=== PATIENT | female | born 1945 | race Caucasian/White ===

== ENCOUNTER → 2016-09-12 | Outpatient (CLI) | payer MEDICARE, BC ==
[2016-07-21 04:39] VITALS: BP 169/74
[~2016-09-12] MED LIST: TRAM50TA PO
--- NOTE | 2016-09-12 14:10 | KCIC ---
PROCEDURE MR of the right knee HISTORY Right knee pain anteriorly. Swelling for 3 months. Osteoarthritis. TECHNIQUE Standard multiplanar sequences are obtained. COMPARISON None FINDINGS There is mild motion degradation. Mild signal within the posterior horn of the medial meniscus compatible with a tear. Abnormal signal within the anterior horn of the lateral meniscus compatible with a tear. Anterior cruciate ligament is intact. Posterior cruciate ligament is intact. Medial collateral ligament is intact. Iliotibial band unremarkable. Fibular collateral ligament, biceps femoris tendon and popliteus tendon are intact. Extensor mechanism is intact. Moderate joint effusion. No evidence of an osteochondral loose body. Severe chondromalacia at the medial joint compartment and at the lateral joint compartment. Severe chondromalacia at the patellofemoral joint compartment. No bone lesion or acute fracture. No acute soft tissue injury. Only trace Ver[place] cyst. IMPRESSION 1. Medial meniscal tear. 2. Lateral meniscal tear. 3. Severe primary osteoarthritis. Electronically signed by: Saulo Goodwin MD (Sep 12, 2016 14:08:21)
--- NOTE | 2016-09-13 01:07 | KCIC ---
EXAM: Bone densitometry. HISTORY: Postmenopausal female presents for osteoporosis screening. FINDINGS: BMD: (g/cm2) - AP Spine Total (L1-L4): 0.935 - Total left Hip: 0.878 T-Score: - AP Spine Total (L1-L4): -0.8 - Total left Hip: -0.5 Z-Score: - AP Spine Total (L1-L4): 1.4 - Total left Hip: 1.1 There has been a 0.4 percent decrease in bone mineral density of the lumbar spine and 5.0 percent decrease in bone mineral density of the left hip compared to a study dated 08/27/2014. World Health Organization criteria for BMD interpretation classify patients as Normal (T-score at or above -1.0), Osteopenic (T-score between -1.0 and -2.5), or Osteoporotic (T-score at or below -2.5). IMPRESSION: Normal bone mineral density. Electronically signed by: Adriana Alvarez (Sep 13, 2016 01:04:17)
== END | disposition home or self-care (01) ==
LOC: KCIC MRI 12:53
PROVIDERS: ATTEND Physician Assistant Medical
DX: E28.39 Other primary ovarian failure (principal); Z78.0 Asymptomatic menopausal state; M25.561 Pain in right knee; S83.241A Other tear of medial meniscus, current injury, right knee, initial encounter; S83.281A Other tear of lateral meniscus, current injury, right knee, initial encounter; M17.11 Unilateral primary osteoarthritis, right knee
CPT/HCPCS: 73721; 77080

== ENCOUNTER → 2017-02-02 | Outpatient (CLI) | payer MEDICARE, BC ==
[2016-07-21 04:39] VITALS: BP 169/74
[~2017-02-02] MED LIST changes: +CITA10TA4 PO; +DICL1TAB5 PO; +LISI1TAB3 PO; +OMEP40CA5 PO
--- NOTE | 2017-02-02 13:58 | EKG ---
[facility] [address] [place] [address] Test Date: 2017-02-02 Test Time: 13:56:20 Pat Name: MAYANK NGUYỄN Department: Room: Gender: F [employer]wn [employer] Work[employer]: TV : 1945 Requested By: AMERICA ARCEO Order Number: [id number] Reading MD: Yaritza Paul Measurements Intervals [place] Rate: 58 P: 31 OK: 126 QRS: -10 QRSD: 94 T: 12 QT: 428 QTc: 424 Interpretive Statements SINUS RHYTHM LEFTWARD AXIS INCOMPLETE RIGHT BUNDLE BRANCH BLOCK POSSIBLY ABNORMAL ECG RI6.01 No previous ECG available for comparison Electronically Signed On 02-04-2017 15:35:11 CDT by Yaritza Paul
== END | disposition home or self-care (01) ==
LOC: SURGPAT 13:19
PROVIDERS: ATTEND Orthopaedic Surgery
DX: I45.10 Unspecified right bundle-branch block (principal)
CPT/HCPCS: 93005

== ENCOUNTER 2017-02-09 07:29 | Day surgery (SDC) | payer MEDICARE, BC ==
[~2017-02-09] VITALS: Ht 165.1 cm; Wt 70.0 kg
[~2017-02-09 07:29] MED LIST changes: +BUPIVACAINE 0.5% 50 ML VIAL. ONE; +HYDROmorphone 2 MG/ML VIAL IV PRN; +IV RINGERS,LACTATED 1000ML 1,000 ML IV SCH; +LIDOCAINE 1% 1 ML SYRINGE. ID PRN; +MORPHINE SULFATE 2 MG/ML DISP.SYRIN. IV PRN; +ONDANSETRON PF 4 MG/2 ML VIAL. IV PRN; +PROCHLORPERAZINE 10 MG/2 ML VIAL. IV PRN; +fentaNYL PF VIAL 100 MCG/2 ML VIAL IV PRN
[2017-02-09] MEDS ORDERED: IV RINGERS,LACTATED 1000ML 1,000 ML IV SCH (08:15)
[2017-02-09] MEDS ORDERED: fentaNYL PF VIAL 100 MCG/2 ML VIAL ONE (09:03)
[2017-02-09] MEDS ORDERED: ONDANSETRON PF 4 MG/2 ML VIAL. ONE (09:03)
[2017-02-09] MEDS ORDERED: PROPOFOL 20 ML IV ONE (09:03)
[2017-02-09] MEDS ORDERED: LIDOCAINE 2% PF Vial for OR 5 ML VIAL. ONE (09:03)
[2017-02-09] MEDS ORDERED: DEXAMETHASONE SOD PHOS 20 MG/5 ML VIAL. ONE (09:03)
[2017-02-09] MEDS ORDERED: ePHEDrine PF IN SALINE 50 MG/5 ML DISP.SYRIN IV ONE (09:34)
[2017-02-09] MEDS ORDERED: SEVOFLURANE 61 TO 120 MINUTES. IH ONE (09:54)
--- NOTE | 2017-02-09 10:26 | PDOC ---
BRIEF OPERATIVE NOTE Date: Feb 09, 2017 Pre-Op Diagnosis medial meniscus tear Post-Op Diagnosis same plus medial femoral condyle fraying Procedure Performed right knee arthroscopy partial medial menisectomy, chondroplasty medial femoral condyle Surgeon Jose Anesthesia Type: General Blood Loss 5cc Findings above Complications none AMERICA ARCEO MD Feb 09, 2017 10:26
[2017-02-09] MEDS ORDERED: HYDR-965 PO (10:32)
--- NOTE | 2017-02-09 10:32 | DISCH ---
DISCHARGE INSTRUCTIONS Condition on Discharge Condition on Discharge: Stable Activity After Discharge Activity Instructions for Disc: Activity as tolerated Weight Bearing Status after Di: As tolerated Diet after Discharge Diet after Discharge: Regular Wound Incision Care Wound/Incision Care: Ice to area for comfort, Keep wound elevated, Change dressing Other wound/incision instructi: remove dressing after 2 days may then shower Contacting the [facility] after DC Call your doctor for: Concerns you may have Follow-Up Follow up with: Jose 10 days AMERICA ARCEO MD Feb 09, 2017 10:31
[2017-02-09] MEDS ORDERED: HYDROcodone/APAP 7.5/325MG 1 TAB TABLET PO ONE (11:00)
--- NOTE | 2017-02-09 11:24 | OP ---
DATE OF SURGERY: 02/09/2017 PREOPERATIVE DIAGNOSIS: Medial meniscus tear. POSTOPERATIVE DIAGNOSES: Medial meniscus tear, chondral fraying of medial femoral condyle weightbearing surface. PROCEDURE: Right knee arthroscopy, partial medial meniscectomy, chondroplasty medial femoral condyle. SURGEON: Tadeo Garcia M.D. ANESTHESIA: General. ESTIMATED BLOOD LOSS: 5 mL. COMPLICATIONS: None. OPERATIVE INDICATIONS: The patient is a 71-year-old female with sudden onset of right knee pain, worse with twisting, pivoting, sharp in nature, but intermittent. She appeared to have minimal degenerative changes. MRI confirmed the clinical suspicion of medial meniscus tear. I had gone over with her the risks, benefits, postoperative course of surgery, the structure and function of the meniscus, the rationale for taking out the damaged part of the meniscus as it would not heal and continued to cause mechanical symptoms and potentially even enlarged tear due to increased stress. I had reviewed, particularly that I cannot undo any degenerative changes which would have to be dealt with on a symptomatic basis. All her questions were answered. Consent was obtained and she agrees to proceed with operative evaluation and treatment. DESCRIPTION OF PROCEDURE: The patient was identified, procedure verified, patient placed in the supine position on the operating table. After adequate amounts of general anesthesia were administered, a thigh tourniquet was placed and the right lower extremity was prepped and draped in the standard sterile fashion, placed in the arthroscopic leg [place]is. After timeout was performed, the patient and procedure identified and verified. The right lower extremity was exsanguinated by Esmarch bandage. Tourniquet inflated to 250 mmHg. Lateral portal was established, medial portal was established using spinal needle localization and the knee joint was systematically examined. She was noted to have some small cartilage fragments in the suprapatellar pouch area which were removed with the arthroscopic shaver. The gutters were noted to be clear. She was noted to have a displaceable tear in the posterior horn of medial meniscus which was trimmed back to stable tissue using arthroscopic punch and shaver. She also had some chondral fraying partial thickness of the weightbearing surface of the medial femoral condyle which was trimmed back to stable tissue using an arthroscopic shaver. ACL was probed and found to be intact. Lateral meniscus was found to have some ____ the anterior horn area which was lightly debrided, but really no evidence of a tear. The knee was then again toured to make sure no loose cartilage bodies were noted. She has some mild patellar chondromalacia throughout. The knee was then drained off arthroscopic fluid. Portals were closed with nylon suture. She was injected in the portal area in the knee with 20 mL of 0.5% plain bupivacaine. Sterile dressings were applied. The patient was returned to recovery room in stable condition having tolerated the procedure well. TADEO GARCIA MD DR: LINDEN/dee dee JOB#: [id number] / [id number]
[2017-02-09 11:35] VITALS: BP 131/63
== END 2017-02-09 11:57 | disposition home or self-care (01) ==
LOC: SURG 07:29
PROVIDERS: ATTEND Orthopaedic Surgery
DX: S83.241A Other tear of medial meniscus, current injury, right knee, initial encounter (principal); X58.XXXA Exposure to other specified factors, initial encounter; Y93.89 Activity, other specified; Y92.89 Other specified places as the place of occurrence of the external cause; Y99.9 Unspecified external cause status; E78.00 Pure hypercholesterolemia, unspecified; I10 Essential (primary) hypertension; M19.90 Unspecified osteoarthritis, unspecified site; F32.9 Major depressive disorder, single episode, unspecified; Z90.49 Acquired absence of other specified parts of digestive tract; Z90.710 Acquired absence of both cervix and uterus
CPT/HCPCS: 29881; J0690; J1100; J2405; J2704; J3010; J3490

== ENCOUNTER → 2017-09-12 | Outpatient (CLI) | payer MEDICARE, BC ==
[2017-09-12 10:23] LABS: CREATININE 0.8 mg/dL (0.6-1.0)
[2017-09-12 10:23] LABS: GFR 70.3
[2017-09-12] MEDS: IOHEXOL 300 MG/ML 100ML VIAL. IV (10:50)
== END | disposition home or self-care (01) ==
LOC: CT 09:41
DX: K44.9 Diaphragmatic hernia without obstruction or gangrene (principal); R31.29 Other microscopic hematuria; R91.1 Solitary pulmonary nodule; I25.10 Atherosclerotic heart disease of native coronary artery without angina pectoris; R59.9 Enlarged lymph nodes, unspecified; K57.30 Diverticulosis of large intestine without perforation or abscess without bleeding; M41.85 Other forms of scoliosis, thoracolumbar region
CPT/HCPCS: 36415; 74178; 82565; Q9967

== ENCOUNTER → 2017-12-25 | Outpatient (CLI) | payer MEDICARE, BC ==
[~2017-12-25] MED LIST changes: -BUPIVACAINE 0.5% 50 ML VIAL. ONE; -CITA10TA4 PO; +CONTRAST GIVEN MC; -DICL1TAB5 PO; -HYDROmorphone 2 MG/ML VIAL IV PRN; -IV RINGERS,LACTATED 1000ML 1,000 ML IV SCH; -LIDOCAINE 1% 1 ML SYRINGE. ID PRN; -LISI1TAB3 PO; -MORPHINE SULFATE 2 MG/ML DISP.SYRIN. IV PRN; -OMEP40CA5 PO; -ONDANSETRON PF 4 MG/2 ML VIAL. IV PRN; -PROCHLORPERAZINE 10 MG/2 ML VIAL. IV PRN; -TRAM50TA PO; -fentaNYL PF VIAL 100 MCG/2 ML VIAL IV PRN
[2017-12-25 10:51] LABS: BLOOD UREA NITROGEN 24 mg/dL (7-20)
[2017-12-25 10:51] LABS: CREATININE 1.1 mg/dL (0.6-1.0); GFR 48.7
[2017-12-25] MEDS: IOHEXOL 300 MG/ML 100ML VIAL. IV (11:09)
== END | disposition home or self-care (01) ==
LOC: CT 10:10
DX: K57.30 Diverticulosis of large intestine without perforation or abscess without bleeding (principal); M41.86 Other forms of scoliosis, lumbar region; M51.46 Schmorl's nodes, lumbar region; I51.7 Cardiomegaly; I70.0 Atherosclerosis of aorta; I72.3 Aneurysm of iliac artery; I10 Essential (primary) hypertension; R91.1 Solitary pulmonary nodule
CPT/HCPCS: 36415; 74174; 82565; 84520; Q9967

== ENCOUNTER → 2018-01-17 | Outpatient (CLI) | payer MEDICARE, BC | END | disposition home or self-care (01) | LOC: PETSC 08:27 | DX: E04.2 Nontoxic multinodular goiter (principal); K22.9 Disease of esophagus, unspecified; K57.30 Diverticulosis of large intestine without perforation or abscess without bleeding; R91.8 Other nonspecific abnormal finding of lung field | CPT/HCPCS: 71250; 78815; A9552 ==

== ENCOUNTER → 2018-01-24 | Outpatient (CLI) | payer MEDICARE, BC | END | disposition home or self-care (01) | LOC: KCIC 12:28 | DX: M76.22 Iliac crest spur, left hip (principal); M41.86 Other forms of scoliosis, lumbar region; I10 Essential (primary) hypertension; E78.00 Pure hypercholesterolemia, unspecified; Z91.81 History of falling | CPT/HCPCS: 73502 ==

== ENCOUNTER → 2018-01-29 | Day surgery (SDC) | payer MEDICARE, BC ==
[~2018-01-29] MED LIST changes: -CONTRAST GIVEN MC; +IV RINGERS,LACTATED 1000ML 1,000 ML IV; +LIDOCAINE 1% PF 2 ML VIAL. ID; +LIDOCAINE 2% PF Vial for OR 5 ML VIAL.; +MORPHINE SULFATE 2 MG/ML DISP.SYRIN. IV; +ONDANSETRON PF 4 MG/2 ML VIAL. IV; +PROCHLORPERAZINE 10 MG/2 ML VIAL. IV; +PROPOFOL 40 ML IV; +fentaNYL PF VIAL 100 MCG/2 ML VIAL IV
[2018-01-29] MEDS: IV RINGERS,LACTATED 1000ML 1,000 ML IV (07:00)
== END | disposition home or self-care (01) ==
LOC: SURG 15:35
DX: K64.0 First degree hemorrhoids (principal); K57.30 Diverticulosis of large intestine without perforation or abscess without bleeding; K62.89 Other specified diseases of anus and rectum; E78.00 Pure hypercholesterolemia, unspecified; F32.9 Major depressive disorder, single episode, unspecified; I12.9 Hypertensive chronic kidney disease with stage 1 through stage 4 chronic kidney disease, or unspecified chronic kidney disease; N18.9 Chronic kidney disease, unspecified; M19.90 Unspecified osteoarthritis, unspecified site; Z87.19 Personal history of other diseases of the digestive system; Z88.5 Allergy status to narcotic agent; Z90.49 Acquired absence of other specified parts of digestive tract; Z90.710 Acquired absence of both cervix and uterus; Z98.890 Other specified postprocedural states; Z79.899 Other long term (current) drug therapy
CPT/HCPCS: 45380; 88305; J2704

== ENCOUNTER 2018-02-05 15:17 | Emergency (ER) | payer MEDICARE, BC ==
[2018-02-05 16:32] LABS: ADD MAN DIFF? NO
[2018-02-05 16:42] LABS: BASO % 1 % (0-3); EOS # 0.1 x10^3/uL (0.0-0.7); EOS % 2 % (0-3); HEMATOCRIT 31.5 % (36.0-47.0); HEMOGLOBIN 10.8 g/dL (12.0-15.5); LYMPH # 0.8 x10^3/uL (1.0-4.8); LYMPH % 17 % (24-48); MEAN CORPUSCULAR HEMOGLOBIN 28 pg (25-35); MEAN CORPUSCULAR HGB CONC 34 g/dL (31-37); MEAN CORPUSCULAR VOLUME 83 fL (79-100); MONO # 0.3 x10^3/uL (0.0-1.1); MONO % 7 % (0-9); NEUT # 3.3 x10^3uL (1.8-7.7); NEUT % 74 % (31-73); PLATELET COUNT 149 x10^3/uL (140-400); RED BLOOD COUNT 3.81 x10^6/uL (3.50-5.40); RED CELL DISTRIBUTION WIDTH 13.8 % (11.5-14.5); WHITE BLOOD COUNT 4.5 x10^3/uL (4.0-11.0)
[2018-02-05 16:50] LABS: ANION GAP 9 (6-14); BLOOD UREA NITROGEN 12 mg/dL (7-20); BUN/CREATININE RATIO 17 (6-20); CALCIUM 8.8 mg/dL (8.5-10.1); CARBON DIOXIDE 26 mmol/L (21-32); CHLORIDE 101 mmol/L (98-107); CREATININE 0.7 mg/dL (0.6-1.0); GLUCOSE 95 mg/dL (70-99); POTASSIUM 3.5 mmol/L (3.5-5.1); SODIUM 136 mmol/L (136-145)
[2018-02-05] MEDS: IV NORMAL SALINE 1000ML BAG 1,000 ML IV (17:00)
[2018-02-05 17:06] LABS: ALBUMIN 3.7 g/dL (3.4-5.0); ALBUMIN/GLOBULIN RATIO 1.2 (1.0-1.7); ALK PHOS 64 U/L (46-116); ALT (SGPT) 15 U/L (14-59); AST (SGOT) 16 U/L (15-37); BILIRUBIN,URINE NEGATIVE (NEG); CLARITY,URINE CLOUDY; COLOR,URINE YELLOW; GLUCOSE,URINE NEGATIVE (NEG); NITRITE,URINE NEGATIVE (NEG); PROTEIN,URINE NEGATIVE (NEG-TRACE); TOTAL BILIRUBIN 0.6 mg/dL (0.2-1.0); TOTAL PROTEIN 6.7 g/dL (6.4-8.2); UROBILINOGEN,URINE 0.2 mg/dL (0.2 mg/dL)
[2018-02-05 17:19] LABS: BACTERIA,URINE 0 /HPF (0-FEW); SQUAMOUS EPITHELIAL CELL,UR OCC /LPF
[2018-02-05 17:27] LABS: INR 1.1 (0.8-1.1); PARTIAL THROMBOPLASTIN TIME 30 SEC (24-38); PROTHROMBIN TIME PATIENT 13.3 SEC (11.7-14.0)
[2018-02-05] MEDS ORDERED: CONTRAST GIVEN MC (17:45)
[2018-02-05] MEDS: IOHEXOL 300 MG/ML 100ML VIAL. IV (18:14)
[2018-02-05] MEDS: IOHEXOL 240 MG/ML 50ML VIAL. PO (18:14)
== END 2018-02-05 20:07 | disposition home or self-care (01) ==
LOC: ER 15:17
DX: K62.5 Hemorrhage of anus and rectum (principal); K62.89 Other specified diseases of anus and rectum; K21.9 Gastro-esophageal reflux disease without esophagitis; I10 Essential (primary) hypertension; K44.9 Diaphragmatic hernia without obstruction or gangrene; Z90.49 Acquired absence of other specified parts of digestive tract; Z90.710 Acquired absence of both cervix and uterus
CPT/HCPCS: 36415; 74177; 80053; 81001; 85025; 85610; 85730; 93005; 99285-25; J7030; Q9966; Q9967

== ENCOUNTER 2018-02-08 11:01 | Inpatient (IN) | payer MEDICARE, BC ==
[2018-02-08] MEDS ORDERED: PNEUMOCOCCAL VAX SCREEN BY RX. MC (12:15)
[2018-02-08] MEDS ORDERED: MORPHINE SULFATE 10 MG/5 ML ORAL SOLUTION. PO (13:00)
[2018-02-08 13:44] LABS: ADD MAN DIFF? NO; BASO % 1 % (0-3); EOS # 0.1 x10^3/uL (0.0-0.7); EOS % 2 % (0-3); HEMOGLOBIN 11.4 g/dL (12.0-15.5); LYMPH # 0.8 x10^3/uL (1.0-4.8); LYMPH % 21 % (24-48); MEAN CORPUSCULAR HEMOGLOBIN 28 pg (25-35); MEAN CORPUSCULAR HGB CONC 34 g/dL (31-37); MEAN CORPUSCULAR VOLUME 83 fL (79-100); MONO # 0.2 x10^3/uL (0.0-1.1); MONO % 6 % (0-9); NEUT # 2.6 x10^3uL (1.8-7.7); NEUT % 69 % (31-73); PLATELET COUNT 155 x10^3/uL (140-400); RED BLOOD COUNT 4.08 x10^6/uL (3.50-5.40); WHITE BLOOD COUNT 3.8 x10^3/uL (4.0-11.0)
[2018-02-08 14:05] LABS: INR 1.1 (0.8-1.1)
[2018-02-08] MEDS: MORPHINE SULFATE 4 MG/ML DISP.SYRIN. IV (14:31)
[2018-02-08] MEDS: IV NORMAL SALINE 1000ML BAG 1,000 ML IV ×2 (14:32→22:46)
[2018-02-08] MEDS: PANTOPRAZOLE IV PUSH 40 MG VIAL. IVP (14:32)
[2018-02-08 15:33] LABS: BILIRUBIN,URINE NEGATIVE (NEG); CLARITY,URINE CLEAR; COLOR,URINE YELLOW; GLUCOSE,URINE NEGATIVE (NEG); NITRITE,URINE NEGATIVE (NEG); PH,URINE 7.5; PROTEIN,URINE NEGATIVE (NEG-TRACE)
[2018-02-08 15:38] LABS: AMORPHOUS SEDIMENT,UR PRESENT /HPF; BACTERIA,URINE 0 /HPF (0-FEW); WBC,URINE 0 /HPF (0-4)
[2018-02-08] MEDS: POLYETHYLENE GLYCOL 3350 17 GM PACKET. PO (17:41)
[2018-02-08] MEDS: HYDROCORTISONE ACETATE 25 MG SUPP.RECT PR (22:46)
[2018-02-09] MEDS: MORPHINE SULFATE 4 MG/ML DISP.SYRIN. IV (01:29)
[2018-02-09] MEDS: PANTOPRAZOLE IV PUSH 40 MG VIAL. IVP (06:22)
[2018-02-09] MEDS: POLYETHYLENE GLYCOL 3350 17 GM PACKET. PO (09:00)
[2018-02-09] MEDS: HYDROCORTISONE ACETATE 25 MG SUPP.RECT PR ×2 (09:23→20:18)
[2018-02-09] MEDS: IV NORMAL SALINE 1000ML BAG 1,000 ML IV ×2 (09:24→20:18)
[2018-02-09 13:47] LABS: ALBUMIN 3.3 g/dL (3.4-5.0); ALBUMIN/GLOBULIN RATIO 1.2 (1.0-1.7); ALK PHOS 84 U/L (46-116); ALT (SGPT) 33 U/L (14-59); ANION GAP 10 (6-14); AST (SGOT) 47 U/L (15-37); BLOOD UREA NITROGEN 7 mg/dL (7-20); BUN/CREATININE RATIO 10 (6-20); CALCIUM 8.2 mg/dL (8.5-10.1); CARBON DIOXIDE 23 mmol/L (21-32); CHLORIDE 106 mmol/L (98-107); CREATININE 0.7 mg/dL (0.6-1.0); GLUCOSE 126 mg/dL (70-99); POTASSIUM 3.2 mmol/L (3.5-5.1); SODIUM 139 mmol/L (136-145); TOTAL BILIRUBIN 0.3 mg/dL (0.2-1.0)
[2018-02-09] MEDS: HYDROcodone/APAP 7.5/325MG 1 TAB TABLET PO (21:26)
[2018-02-10] MEDS: IV NORMAL SALINE 1000ML BAG 1,000 ML IV (06:16)
[2018-02-10] MEDS: PANTOPRAZOLE IV PUSH 40 MG VIAL. IVP (06:17)
[2018-02-10] MEDS: HYDROcodone/APAP 7.5/325MG 1 TAB TABLET PO ×4 (06:21→23:57)
[2018-02-10] MEDS: POLYETHYLENE GLYCOL 3350 17 GM PACKET. PO (08:44)
[2018-02-10] MEDS: HYDROCORTISONE ACETATE 25 MG SUPP.RECT PR ×2 (08:44→22:07)
[2018-02-10] MEDS: ACETAMINOPHEN 500 MG TABLET PO (10:48)
[2018-02-10] MEDS: POTASSIUM CHLORIDE 10 MEQ TABLET.ER. PO ×3 (10:49→16:54)
[2018-02-10] MEDS: MORPHINE SULFATE 4 MG/ML DISP.SYRIN. IV ×2 (19:53→23:57)
[2018-02-11] MEDS: POLYETHYLENE GLYCOL 3350 17 GM PACKET. PO (08:06)
[2018-02-11] MEDS: HYDROCORTISONE ACETATE 25 MG SUPP.RECT PR (08:06)
[2018-02-11] MEDS: PANTOPRAZOLE 40 MG TABLET.DR. PO (08:07)
[2018-02-11] MEDS: POTASSIUM CHLORIDE 10 MEQ TABLET.ER. PO (08:07)
[2018-02-11] MEDS: HYDROcodone/APAP 7.5/325MG 1 TAB TABLET PO (13:13)
[2018-02-12 18:14] LABS: ANA INTERP Negative (.)
== END 2018-02-11 14:45 | disposition home or self-care (01) | DRG 394 ==
LOC: 4 NORTH 11:01
DX: K62.89 Other specified diseases of anus and rectum (principal); K92.1 Melena; I72.3 Aneurysm of iliac artery; E78.5 Hyperlipidemia, unspecified; F32.9 Major depressive disorder, single episode, unspecified; I00 Rheumatic fever without heart involvement; I10 Essential (primary) hypertension; I70.8 Atherosclerosis of other arteries; K44.9 Diaphragmatic hernia without obstruction or gangrene; K57.30 Diverticulosis of large intestine without perforation or abscess without bleeding; K59.00 Constipation, unspecified; M19.90 Unspecified osteoarthritis, unspecified site; K64.0 First degree hemorrhoids; N81.9 Female genital prolapse, unspecified; Z90.49 Acquired absence of other specified parts of digestive tract; Z90.710 Acquired absence of both cervix and uterus
CPT/HCPCS: 36415; 74177; 80053; 81001; 85025; 85610; 85730; 86038; 93005; 93306; C9113; J2270; J7030; Q9966; Q9967

== ENCOUNTER → 2018-04-17 | Day surgery (SDC) | payer BC, MEDICARE ==
[~2018-04-17] MED LIST changes: -IV RINGERS,LACTATED 1000ML 1,000 ML IV; -LIDOCAINE 2% PF Vial for OR 5 ML VIAL.; +MIDAZOLAM HCL/PF 2 MG/2 ML VIAL. IV; -MORPHINE SULFATE 2 MG/ML DISP.SYRIN. IV; -ONDANSETRON PF 4 MG/2 ML VIAL. IV; -PROCHLORPERAZINE 10 MG/2 ML VIAL. IV; -PROPOFOL 40 ML IV
[2018-04-17] MEDS: IV RINGERS,LACTATED 1000ML 1,000 ML IV (07:24)
== END | disposition home or self-care (01) ==
LOC: ENDOS 06:46
DX: K57.30 Diverticulosis of large intestine without perforation or abscess without bleeding (principal); K64.0 First degree hemorrhoids; K62.89 Other specified diseases of anus and rectum; I10 Essential (primary) hypertension; F32.9 Major depressive disorder, single episode, unspecified; Z98.890 Other specified postprocedural states; Z90.710 Acquired absence of both cervix and uterus; Z90.49 Acquired absence of other specified parts of digestive tract; Z93.3 Colostomy status; M19.90 Unspecified osteoarthritis, unspecified site; Z79.899 Other long term (current) drug therapy; E78.00 Pure hypercholesterolemia, unspecified; K21.9 Gastro-esophageal reflux disease without esophagitis
CPT/HCPCS: 45380; 88305

== ENCOUNTER 2019-11-18 09:53 | Day surgery (SDC) | payer MEDICARE, BC ==
[~2019-11-18] VITALS: Ht 165.1 cm; Wt 74.5 kg
[~2019-11-18 09:53] MED LIST changes: +CIPR500T94 PO; +CITA10TA4 PO; +CITA20TA6 PO; +DICL1TAB5 PO; +FENO145T3 PO; +HYDR-3165 PO; +HYDR28.311 RC; +HYDROmorphone 2 MG/ML VIAL IV PRN; +IV RINGERS,LACTATED 1000ML 1,000 ML IV SCH; -LIDOCAINE 1% PF 2 ML VIAL. ID; +LIDOCAINE 1% PF 2 ML VIAL. ID PRN; +LISI1TAB23 PO; +METR500T PO; -MIDAZOLAM HCL/PF 2 MG/2 ML VIAL. IV; +MORPHINE SULFATE 2 MG/ML VIAL. IV PRN; +MULT1CAP15 PO; +OMEP40CA45 PO; +OXYC1TAB8 PO; +PROCHLORPERAZINE 10 MG/2 ML VIAL. IV PRN; +TRAM50TA PO; -fentaNYL PF VIAL 100 MCG/2 ML VIAL IV; +fentaNYL PF VIAL 100 MCG/2 ML VIAL IV PRN
[2019-11-18] MEDS ORDERED: BUPIVACAINE-EPI 0.5%-1:200000 MPF 30 ML VIAL. ONE (10:56)
[2019-11-18] MEDS ORDERED: PROPOFOL 20 ML IV ONE (10:59)
[2019-11-18] MEDS ORDERED: DEXAMETHASONE SOD PHOS 4 MG/ML VIAL ONE (11:01)
[2019-11-18] MEDS ORDERED: ONDANSETRON PF 4 MG/2 ML VIAL. ONE (11:01)
[2019-11-18] MEDS ORDERED: fentaNYL PF VIAL 100 MCG/2 ML VIAL ONE (11:01)
[2019-11-18] MEDS ORDERED: ROCURONIUM 50 MG/5 ML VIAL. ONE (11:02)
--- NOTE | 2019-11-18 11:13 | PDOC ---
SURGICAL PROGRESS NOTE Subjective Pre-Op Note 74 yo F with LLQ incisional hernia. TO OR for repair. R/R/B/A d/w pt. Risks, including, but not limited to: bleeding, infection, damage to surrounding structures, risk of anesthesia, risk of , risk of recurrence. She appears to understand, her questions are answered and she elects to proceed. Office note H&P reviewed and unchanged. Vital Signs Vital Signs Date Time Temp Pulse Resp B/P (MAP) Pulse Ox O2 Delivery O2 Flow Rate FiO2 11/18/19 10:48 97.7 64 18 134/60 97 Room Air 97.7 LINA SANDOVAL MD Nov 18, 2019 11:13
[2019-11-18] MEDS ORDERED: ePHEDrine PF IN SALINE 50 MG/10 ML SYRINGE. IV ONE (11:30)
[2019-11-18] MEDS: fentaNYL PF VIAL 100 MCG/2 ML VIAL IV PRN ×2 (12:53→13:50)
--- NOTE | 2019-11-18 13:14 | PDOC4 ---
OPERATIVE NOTE Date: Date: Nov 18, 2019 Pre-Op Diagnosis: Incisional hernia Post-Op Diagnosis: same Procedure Performed: Incisional hernia repair Surgeon: Alonso Sandoval Anesthesia Type: GETA plus local Blood Loss: 10 Specimans Obtained: none Findings: LLQ incisional hernia, no other palpable fascial defect Complications: none Operative Note: After obtaining informed consent, patient was taken to OR, induced under GETA and prepped in the usual fashion. Transverse incision made LLQ over palpable hernia and previously marked spot with pt in preop. Incision carried down to fascia circumstantially. Hernia sac opened. No other fascial defect noted intraabdominally. Fascia then repaired transversely using 0 looped PDS. Skin repaired with 3 0 vicryl and 4 0 monocryl. Dressing placed. Patient tolerated procedure well and sent to PACU in stable condition. All counts correct. LINA SANDOVAL MD Nov 18, 2019 13:14
[2019-11-18] MEDS ORDERED: HYDROcodone/APAP 5/325MG 1 TAB TABLET PO ONE (13:15)
[2019-11-18] MEDS ORDERED: DOCU-109 PO (13:19)
[2019-11-18] MEDS ORDERED: HYDR-3164 PO (13:20)
[2019-11-18 14:10] VITALS: BP 130/68
== END 2019-11-18 14:20 | disposition home or self-care (01) ==
LOC: SURG 09:53
PROVIDERS: ATTEND Surgery
DX: K43.2 Incisional hernia without obstruction or gangrene (principal); G43.909 Migraine, unspecified, not intractable, without status migrainosus; E66.3 Overweight; Z68.27 Body mass index [BMI] 27.0-27.9, adult
CPT/HCPCS: 49560; A7015; C1769; J0171; J0696; J1100; J2405; J2704; J3010; J3490

== ENCOUNTER → 2020-04-19 | Outpatient (CLI) | payer MEDICARE, BC ==
[~2020-04-19] MED LIST changes: +DOCU-109 PO; +HYDR-3164 PO; -HYDR28.311 RC; +HYDR28.337 RC; -HYDROmorphone 2 MG/ML VIAL IV PRN; -IV RINGERS,LACTATED 1000ML 1,000 ML IV SCH; -LIDOCAINE 1% PF 2 ML VIAL. ID PRN; -MORPHINE SULFATE 2 MG/ML VIAL. IV PRN; -PROCHLORPERAZINE 10 MG/2 ML VIAL. IV PRN; -fentaNYL PF VIAL 100 MCG/2 ML VIAL IV PRN
== END | disposition home or self-care (01) ==
LOC: LAB 13:04
PROVIDERS: ATTEND Surgery
DX: Z01.818 Encounter for other preprocedural examination (principal); Z11.59 Encounter for screening for other viral diseases; K43.2 Incisional hernia without obstruction or gangrene; Z88.8 Allergy status to other drugs, medicaments and biological substances; Z91.012 Allergy to eggs; Z91.011 Allergy to milk products; Z91.018 Allergy to other foods
CPT/HCPCS: U0003-CS

== ENCOUNTER 2020-04-22 06:06 | Day surgery (SDC) | payer MEDICARE, BC ==
[~2020-04-22] VITALS: Ht 165.1 cm; Wt 77.5 kg
[~2020-04-22 06:06] MED LIST changes: +ceFAZolin SODIUM IV Push 1 GM VIAL. IVP PRN
[2020-04-22] MEDS ORDERED: fentaNYL PF VIAL 100 MCG/2 ML VIAL IV PRN ×2 (07:00)
[2020-04-22] MEDS ORDERED: PROCHLORPERAZINE 10 MG/2 ML VIAL. IV PRN (07:00)
[2020-04-22] MEDS ORDERED: LIDOCAINE 1% PF 2 ML VIAL. ID PRN (07:00)
[2020-04-22] MEDS ORDERED: MORPHINE SULFATE 2 MG/ML VIAL. IV PRN (07:00)
[2020-04-22] MEDS ORDERED: HYDROmorphone 2 MG/ML VIAL IV PRN (07:00)
[2020-04-22] MEDS ORDERED: IV RINGERS,LACTATED 1000ML 1,000 ML IV SCH (07:00)
[2020-04-22] MEDS ORDERED: ACETAMINOPHEN 500 MG TABLET PO ONE (07:00)
[2020-04-22] MEDS ORDERED: MINERAL OIL for SURGERY 10 ML VIAL. MC ONE (07:02)
[2020-04-22] MEDS ORDERED: BUPIVACAINE-EPI 0.25%-1:200000 MPF 30 ML VIAL. ONE (07:03)
--- NOTE | 2020-04-22 07:15 | PDOC1 ---
History and Physical Date of Admission Date of Admission DATE: 04/22/20 TIME: 07:12 Identification/Chief Complaint Chief Complaint Abdominal hernia Source Source: Patient History of Present Illness History of Present Illness 75-year-old female who had a colostomy for diverting colostomy for ischemic proctitis this was repaired and taken down previously and in November 2019 had a hernia repaired and has reoccurred Past Medical History Cardiovascular: HTN, Hyperlipidemia Psych: Depression Rheumatologic: Other Past Surgical History Past Surgical History: Cholecystectomy, Hysterectomy, Other Family History Family History: Other Social History ALCOHOL: none Drugs: None Current Medications Current Medications Current Medications Fentanyl Citrate (Fentanyl 2ml Vial) 25 mcg PRN Q5MIN PRN IV MILD PAIN 1-3; Start 04/22/20 at 07:00; Stop 04/22/20 at 19:00 Fentanyl Citrate (Fentanyl 2ml Vial) 50 mcg PRN Q5MIN PRN IV MODERATE TO SEVERE PAIN; Start 04/22/20 at 07:00; Stop 04/22/20 at 19:00 Morphine Sulfate (Morphine Sulfate) 1 mg PRN Q10MIN PRN IV SEVERE PAIN 7-10; Start 04/22/20 at 07:00; Stop 04/22/20 at 19:00 Ringer's Solution 1,000 ml @ 30 mls/hr Q24H IV Last administered on 04/22/20at 06:42; Start 04/22/20 at 07:00; Stop 04/22/20 at 18:59 Lidocaine HCl (Xylocaine-Mpf 1% 2ml Vial) 2 ml PRN 1X PRN ID PRIOR TO IV START; Start 04/22/20 at 07:00; Stop 04/22/20 at 19:00 Hydromorphone HCl (Dilaudid) 0.5 mg PRN Q10MIN PRN IV SEV PAIN, Second choice; Start 04/22/20 at 07:00; Stop 04/22/20 at 19:00 Prochlorperazine Edisylate (Compazine) 5 mg PACU PRN PRN IV NAUSEA, MRX1; Start 04/22/20 at 07:00; Stop 04/22/20 at 19:00 Cefazolin Sodium (Ancef) 1 gm 1X PREOP PRN IVP PRIOR TO PROCEDURE; Start 04/22/20 at 06:00; Stop 04/22/20 at 18:00 Acetaminophen (Tylenol) 1,000 mg 1X ONCE PO Last administered on 04/22/20at 06:41; Start 04/22/20 at 07:00; Stop 04/22/20 at 07:01; Status DC Mineral Oil (Muri-Lube) 10 ml STK-MED ONCE MC ; Start 04/22/20 at 07:02; Stop 04/22/20 at 07:03; Status DC Bupivacaine HCl/ Epinephrine Bitart (Sensorcaine-Epi 0.25%-1:522561 Mpf) 30 ml STK-MED ONCE .ROUTE ; Start 04/22/20 at 07:03; Stop 04/22/20 at 07:03; Status DC Active Scripts Active Reported [place] 5-325 Tablet (Acetaminophen/Hydrocodone Bitart) 1 Each Tablet 1 Tab PO PRN Q6HRS PRN Colace (Docusate Sodium) 100 Mg Capsule 1 Cap PO BID 30 Days Multivitamins (Multivitamin) 1 Each Capsule 1 Each PO DAILY Fenofibrate (Fenofibrate Nanocrystallized) 145 Mg Tablet 1 Tab PO QHS Citalopram Hbr (Citalopram Hydrobromide) 20 Mg Tablet 1 Tab PO QHS Lisinopril-Hctz 10-12.5 Mg Tab (Lisinopril/Hydrochlorothiazide) 1 Each Tablet 1 Tab PO QHS Omeprazole 40 Mg Capsule. 1 Cap PO QH Allergies Allergies: Coded Allergies: Egg Derived (Verified Allergy, Intermediate, 04/22/20) No Known Medication Allergies (Verified Allergy, Unknown, 04/22/20) ROS Gastrointestinal: Yes Abdominal Pain Physical Exam General: Alert, Oriented X3, Cooperative, No acute distress HEENT: Atraumatic Lungs: Clear to auscultation, Normal air movement Heart: RRR, no murmurs Abdomen: Normal bowel sounds, Soft, Other (Left lower quadrant incision with bulge consistent with hernia tender to palpation) Rectal Exam: not examined Extremities: No edema Skin: No significant lesion Neuro: Normal speech Psych/Mental Status: Mental status NL Vitals Vitals Vital Signs Date Time Temp Pulse Resp B/P (MAP) Pulse Ox O2 Delivery O2 Flow Rate FiO2 04/22/20 06:36 97.4 76 18 123/64 96 Room Air 97.4 VTE Prophylaxis Ordered VTE Prophylaxis Devices: Yes VTE Pharmacological Prophylaxi: Contraindicated Assessment/Plan Assessment/Plan Recurrent incisional hernia plan repair robotic assisted laparoscopic. Justicifation of Admission Dx: Justifications for Admission: Justification of Admission Dx: N/A EL ZHONG MD Apr 22, 2020 07:15
[2020-04-22] MEDS ORDERED: ROCURONIUM 50 MG/5 ML VIAL. ONE (07:18)
[2020-04-22] MEDS ORDERED: MIDAZOLAM HCL/PF 2 MG/2 ML VIAL. ONE (07:18)
[2020-04-22] MEDS ORDERED: fentaNYL PF VIAL 100 MCG/2 ML VIAL ONE ×2 (07:18→09:26)
[2020-04-22] MEDS ORDERED: LIDOCAINE 2% PF 5 ML VIAL. ONE (07:18)
[2020-04-22] MEDS ORDERED: ETOMIDATE 20 MG/10 ML VIAL. IV ONE (07:18)
[2020-04-22] MEDS ORDERED: DEXAMETHASONE SOD PHOS 20 MG/5 ML VIAL. ONE (07:53)
[2020-04-22] MEDS ORDERED: SEVOFLURANE 61 TO 120 MINUTES. IH ONE (07:53)
[2020-04-22] MEDS ORDERED: ONDANSETRON PF 4 MG/2 ML VIAL. ONE (07:53)
[2020-04-22] MEDS ORDERED: KETOROLAC 30 MG/ML VIAL. ONE (07:53)
[2020-04-22] MEDS ORDERED: GLYCOPYRROLATE 1 MG/5 ML VIAL. ONE (07:59)
[2020-04-22] MEDS ORDERED: NEOSTIGMINE METHYLSULFATE 5 MG/5 ML SYRINGE. ONE (07:59)
--- NOTE | 2020-04-22 09:04 | PDOC4 ---
Operative Note Operative Note Date: April 22, 2020 at 901 Preoperative diagnosis: Recurrent incisional hernia Postoperative diagnosis: Same Procedure: Robotic assisted laparoscopic incisional hernia repair with mesh Surgeon: Enrrique Specimen: None Dictation: Patient is a 75-year-old female who had a colostomy takedown and developed a hernia in this area she had a primary repair and is subsequently returned. Procedure of robotic assisted laparoscopic incisional hernia repair with mesh was explained to the patient detail was benefits were also discussed occluding bleeding infection injury to intra-abdominal contents possible necessitating further or open operations alternatives to this procedure also discussed with the patient who seemed to understand and gave both verbal and written consent to have the procedure performed. Patient was taken to the ope rating room placed in the supine position general anesthesia was initiated once patient was sleeping intubated her abdomen was prepped and draped usual sterile fashion using ChloraPrep. An area in the left upper quadrant was injected with quarter percent Marcaine with epinephrine incision was made 11 blade scalpel and a 5 mm Visiport was placed under direct visualization into the abdomen creating pneumoperitoneum once this complete 5 mm port was placed in abdomen was inspected it was noted that she had quite a few adhesions to the anterior abdominal wall as well as to her hernia defect at this point the da Chani ports were placed under direct visualization 1 in the right midabdomen right lower abdomen and epigastric area. The da Chani robot was brought and docked all port sites surgeon went to the robotic console using a grasper and Endo Tera scissors the adhesions to the anterior abdominal wall were taken down with blunt and sharp dissection completely exposing the hernia defect. The hernia defect was then closed with a running 2 OV lock nonabsorbable sutures. Once this was complete the closure was then covered with ventral light ST Bard mesh 4 x 6 cm this was sewn into place with a running 2 OV lock absorbable sutures. The da Chani robot was undocked from all port sites pneumoperitoneum was reduced all ports were removed skin incisions the port sites were all closed with 4-0 s ubcuticular Monocryl Mastisol Steri-Strips and island dressings were applied. Patient was awaken extubated in the operating room taken to recovery in stable condition all sponge instrument needle counts listed as correct estimated blood loss 5 mL EL ZHONG MD Apr 22, 2020 09:04
--- NOTE | 2020-04-22 09:07 | DISCH ---
DISCHARGE INSTRUCTIONS Condition on Discharge Condition on Discharge: Stable Activity After Discharge Activity Instructions for Disc: Avoid exertion Other activity instructions: No lifting more than 20 pounds for 2 weeks Bathing Instructions: Shower-keep dressing dry Lifting Instructions after Dis: No heavy lifting Driving Instructions after Dis: Do not drive Weight Bearing Status after Di: No restrictions Diet after Discharge Diet after Discharge: Regular Diet Texture: Regular Liquid Texture: Thin Liquid Swallowing Supervision: None needed Wound Incision Care Other wound/incision instructi: May shower in 24 hours Contacting the [facility] after DC Call your doctor for: If your condition worsens Follow-Up Follow up with: Dr. Zhong in 2 weeks Treatment/Equipment after DC Adaptive Equipment Issued: None EL ZHONG MD Apr 22, 2020 09:06
[2020-04-22] MEDS ORDERED: oxyCODONE/APAP 5/325 1 TAB TABLET PO ONE ×2 (09:15)
[2020-04-22 10:00] VITALS: BP 98/52
== END 2020-04-22 10:30 | disposition home or self-care (01) ==
LOC: SURG 06:06
PROVIDERS: ATTEND Surgery
DX: K43.2 Incisional hernia without obstruction or gangrene (principal); I10 Essential (primary) hypertension; E78.5 Hyperlipidemia, unspecified; F32.9 Major depressive disorder, single episode, unspecified; Z90.49 Acquired absence of other specified parts of digestive tract; Z90.710 Acquired absence of both cervix and uterus; Z79.899 Other long term (current) drug therapy; Z98.890 Other specified postprocedural states; Z91.012 Allergy to eggs
CPT/HCPCS: 49656; A7015; C1781; J0690; J1100; J1885; J2250; J2405; J2710; J3010; J3490